=== PATIENT | female | born 1960 | race Caucasian/White ===

== ENCOUNTER → 2023-10-09 12:58 | Outpatient (REF) | payer MEDICARE, OTHER, SELFPAY | LOC: HWRAD 12:58 | PROVIDERS: ATTENDING PHYSICIAN Internal Medicine Critical Care Medicine; FAMILY PHYSICIAN Family Medicine | DX: R06.09 Other forms of dyspnea (principal); Z87.891 Personal history of nicotine dependence | CPT/HCPCS: 71271; 93306 ==

== ENCOUNTER → 2024-01-16 08:51 | Outpatient (REF) | payer MEDICARE, OTHER, SELFPAY | LOC: RCS 08:51 | PROVIDERS: ATTENDING PHYSICIAN Internal Medicine Cardiovascular Disease; FAMILY PHYSICIAN Family Medicine | DX: R07.89 Other chest pain (principal) | CPT/HCPCS: 93017; 93350 ==

== ENCOUNTER → 2024-07-23 08:47 | Outpatient (REF) | payer MEDICARE, OTHER, SELFPAY | LOC: HWRAD 08:47 | PROVIDERS: ATTENDING PHYSICIAN Family Medicine | DX: R30.0 Dysuria (principal) | CPT/HCPCS: 76770 ==